=== PATIENT | male | born 1965 | race Caucasian/White ===

== ENCOUNTER 2018-07-20 09:16 | Emergency (ER) | payer BC ==
[2018-07-20] MEDS ORDERED: ASPIRIN 81 MG TABLET, CHEWABLE PO ONE (11:35)
--- NOTE | 2018-07-20 11:37 | ER Document Report ---
ED Medical Screen (RME) - General Chief Complaint: Chest Pain Stated Complaint: CHEST PAIN Time Seen by Provider: 07/20/18 11:28 Mode of Arrival: Ambulatory Information source: Patient Notes: 53-year-old male presents emergency department complaints of left-sided chest tightness that started around 8 AM. Patient was lifting concrete when it started. He states that he is having some associated shortness of breath. He is an albuterol inhaler without relief his symptoms. He states that over the last couple of hours he is becoming more anxious and having recurrent episodes of the chest tightness. He states that he has been having this similar symptoms for the last 4 months. 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 He states that he had this completed last week but does not know the results. He has a stress test scheduled on 07/27 and an echo scheduled on 08/14. Patient denies any hypertension, hyperlipidemia, coronary artery disease, smoking, diabetes. He states that he does have a family history of coronary artery disease. I have greeted and performed a rapid initial assessment of this patient. A comprehensive ED assessment and evaluation of the patient, analysis of test results and completion of the medical decision making process will be conducted by additional ED providers. PHYSICAL EXAMINATION: GENERAL: Well-appearing, well-nourished and in no acute distress. HEAD: Atraumatic, normocephalic. EYES: Pupils equal round extraocular movements intact, conjunctiva are normal. ENT: Nares patent NECK: Normal range of motion LUNGS: No respiratory distress Musculoskeletal: Normal range of motion NEUROLOGICAL: Normal speech, normal gait. PSYCH: Normal mood, normal affect. SKIN: Warm, Dry, normal turgor, no rashes or lesions noted. TRAVEL OUTSIDE OF THE [place] IN LAST 30 DAYS: No - Related Data Allergies/Adverse Reactions: iodine [Iodine] Allergy (Intermediate, Verified 07/20/18 09:17) Past Medical History - Past Medical History Cardiac Medical History: Reports: Hx Coronary Artery Disease, Hx Hypercholesterolemia Denies: Hx Heart Attack, Hx Hypertension Pulmonary Medical History: Denies: Hx Asthma - POSSIBLE, Hx Bronchitis, Hx COPD, Hx Pneumonia Neurological Medical History: Reports: Hx Seizures - 13 YRS AND NONE SINCE. Denies: Hx Cerebrovascular Accident Renal/ Medical History: Reports: Hx Kidney Stones Musculoskeltal Medical History: Denies Hx Arthritis - Immunizations Hx Diphtheria, Pertussis, Tetanus Vaccination: No Physical Exam - Vital signs Vitals: Temp Pulse Resp BP Pulse Ox 97.7 F 58 L 16 139/78 H 99 07/20/18 09:26 07/20/18 09:26 07/20/18 09:26 07/20/18 09:26 07/20/18 09:26 Course - Vital Signs Vital signs: Temp Pulse Resp BP Pulse Ox 97.7 F 58 L 16 139/78 H 99 07/20/18 09:26 07/20/18 09:26 07/20/18 09:26 07/20/18 09:26 07/20/18 09:26
[2018-07-20 12:22] LABS: ABSOLUTE EOSINOPHILS # (AUTO) 0.1 10^3/uL (0.0-0.6); ABSOLUTE LYMPHOCYTES (AUTO) 1.8 10^3/uL (0.5-4.7); ABSOLUTE MONOCYTES (AUTO) 0.4 10^3/uL (0.1-1.4); BASOPHILS % (AUTO) 0.4 % (0-2); EOSINOPHILS % (AUTO) 1.6 % (0-6); HEMATOCRIT 43.3 % (37.9-51.0); HEMOGLOBIN 15.1 g/dL (13.5-17.0); LYMPHOCYTES % (AUTO) 29.1 % (13-45); MEAN CORPUSCULAR HGB CONC 34.8 g/dL (32.0-36.0); MEAN CORPUSCULAR VOLUME 92 fl (80-97); MONOCYTES % (AUTO) 6.7 % (3-13); PLATELET COUNT 219 10^3/uL (150-450); RED BLOOD COUNT 4.72 10^6/uL (4.35-5.55); RED CELL DISTRIBUTION WIDTH 12.6 % (11.5-14.0); SEGMENTED NEUTROPHILS % (AUTO) 62.2 % (42-78); TOTAL CELLS COUNTED % (AUTO) 100 %; WHITE BLOOD COUNT 6.4 10^3/uL (4.0-10.5)
--- NOTE | 2018-07-20 12:39 | RADIOLOGY REPORT (SQ) ---
EXAM DESCRIPTION: CHEST SINGLE VIEW COMPLETED DATE/TIME: 07/20/2018 12:14 pm REASON FOR STUDY: chest pressure COMPARISON: None. EXAM PARAMETERS: NUMBER OF VIEWS: One view. TECHNIQUE: Single frontal radiographic view of the chest acquired. RADIATION DOSE: NA LIMITATIONS: None. FINDINGS: LUNGS AND PLEURA: No opacities, masses or pneumothorax. No pleural effusion. MEDIASTINUM AND HILAR STRUCTURES: No masses. Contour normal. HEART AND VASCULAR STRUCTURES: Heart normal in size. Normal vasculature. BONES: No acute findings. HARDWARE: None in the chest. OTHER: No other significant finding. IMPRESSION: 1. NO ACUTE RADIOGRAPHIC FINDING IN THE CHEST. TECHNICAL DOCUMENTATION: JOB ID: [id number] [employer]- All Rights Reserved Reading location - IP/workstation name: [email or web address]
[2018-07-20 12:46] LABS: ALANINE AMINOTRANSFERASE 17 U/L (21-72); ALBUMIN 4.7 g/dL (3.5-5.0); ALKALINE PHOSPHATASE 58 U/L (38-126); ANION GAP 8 (5-19); ASPARTATE AMINO TRANSFERASE 42 U/L (17-59); BILIRUBIN,DIRECT 0.3 mg/dL (0.0-0.4); BILIRUBIN,TOTAL 0.8 mg/dL (0.2-1.3); BLOOD UREA NITROGEN 14 mg/dL (7-20); CARBON DIOXIDE 30 mmol/L (22-30); CHLORIDE 105 mmol/L (98-107); GLUCOSE 98 mg/dL (75-110); POTASSIUM 4.6 mmol/L (3.6-5.0); SODIUM 142.5 mmol/L (137-145); TOTAL PROTEIN 7.7 g/dL (6.3-8.2)
--- NOTE | 2018-07-20 14:00 | EKG REPORT ---
SEVERITY:- NORMAL ECG - SINUS RHYTHM : Confirmed by: Stan Nava 20-Jul-2018 13:59:51
--- NOTE | 2018-07-20 19:47 | ER Document Report ---
ED General - General Chief Complaint: Chest Pain Stated Complaint: CHEST PAIN Time Seen by Provider: 07/20/18 11:28 Primary Care Provider: JAKOB ART MD [Primary Care Provider] - Follow up tomorrow Mode of Arrival: Ambulatory Notes: Patient is a 53-year-old male without chronic medical problems, former smoker, presents complaining of chest pain. Patient states that he was at work, went from a sitting to standing position and became somewhat. States lightheadedness did not resolve. He got in his truck with a friend to drive home. States that during the drive he began to develop some pressure-like sensation over his left chest. States he elected to come to the hospital since that time. He notes that that pain did spontaneously resolve approximately 8-10 hours ago and has not recurred since that time. Nothing seemed to improve or worsen his symptoms when present. The patient has a history of similar symptoms multiple times within the past 3 months. He has established care with cardiology due to these concerns. He had a treadmill stress test approximately 1 week ago that he reports showed abnormal rhythms but did not show any evidence of reversible ischemia. He is scheduled for a nuclear stress test next week. He denies any current symptoms at the time of my assessment. TRAVEL OUTSIDE OF THE [place] IN LAST 30 DAYS: No - Related Data Allergies/Adverse Reactions: iodine [Iodine] Allergy (Intermediate, Verified 07/20/18 09:17) Past Medical History - General Information source: Patient - Social History Smoking Status: Former Smoker Chew tobacco use (# tins/day): Yes - 1 can a week Frequency of alcohol use: 6 packs a year Drug Abuse: Marijuana Lives with: Spouse/Significant other Family History: Reviewed & Not Pertinent Patient has suicidal ideation: No Patient has homicidal ideation: No - Past Medical History Cardiac Medical History: Reports: Hx Coronary Artery Disease, Hx Hypercholesterolemia Denies: Hx Heart Attack, Hx Hypertension Pulmonary Medical History: Denies: Hx Asthma - POSSIBLE, Hx Bronchitis, Hx COPD, Hx Pneumonia Neurological Medical History: Reports: Hx Seizures - 13 YRS AND NONE SINCE. Denies: Hx Cerebrovascular Accident Endocrine Medical History: Reports: Hx Diabetes Mellitus Type 2 - borderline Renal/ Medical History: Reports: Hx Kidney Stones. Denies: Hx Peritoneal Dialysis Musculoskeletal Medical History: Denies Hx Arthritis Past Surgical History: Reports: Hx Genitourinary Surgery - Immunizations Hx Diphtheria, Pertussis, Tetanus Vaccination: No Review of Systems - Review of Systems Notes: Constitutional: Negative for fever. HENT: Negative for sore throat. Eyes: Negative for visual changes. Cardiovascular: Positive for chest pain now resolved Respiratory: Negative for shortness of breath. Gastrointestinal: Negative for abdominal pain, vomiting or diarrhea. Genitourinary: Negative for dysuria. Musculoskeletal: Negative for back pain. Skin: Negative for rash. Neurological: Negative for headaches, weakness or numbness. 10 point ROS negative except as marked above and in HPI. Physical Exam - Vital signs Vitals: Temp Pulse Resp BP Pulse Ox 97.7 F 58 L 16 139/78 H 99 07/20/18 09:26 07/20/18 09:26 07/20/18 09:26 07/20/18 09:26 07/20/18 09:26 Interpretation: Bradycardic Notes: PHYSICAL EXAMINATION: GENERAL: Well-appearing, well-nourished and in no acute distress. HEAD: Atraumatic, normocephalic. EYES: Pupils equal round and reactive to light, extraocular movements intact, sclera anicteric, conjunctiva are normal. ENT: nares patent, oropharynx clear without exudates. Moist mucous membranes. NECK: Normal range of motion, supple without lymphadenopathy LUNGS: Breath sounds clear to auscultation bilaterally and equal. No wheezes rales or rhonchi. HEART: Regular rate and rhythm without murmurs ABDOMEN: Soft, nontender, normoactive bowel sounds. No guarding, no rebound. No masses appreciated. EXTREMITIES: Normal range of motion, no pitting or edema. No cyanosis. NEUROLOGICAL: No focal neurological deficits. Moves all extremities spontaneously and on command. PSYCH: Normal mood, normal affect. SKIN: Warm, Dry, normal turgor, no rashes or lesions noted. Course - Re-evaluation Re-evalutation: 07/20/18 19:45 Presentation of chest pain in an otherwise well appearing patient. Low clinical suspicion for ACS given clinical history, exam, EKG without ST elevations or depressions, and negative initial troponin. HEART score less than or equal to 3. PE also seems unlikely given clinical history, absence of tachycardia or dyspnea. Wells score 0. CXR without evidence of pneumothorax or pneumonia. No widened mediastinum. Aortic dissection also seems unlikely given history, symmetric pulses, CXR, and vitals. Repeat troponin remains normal 4 hours after initial. The patient actually has a scheduled cardiac stress test next week and I think this is an appropriate timeframe in which complete the study. Overall assessment: Chest pain in a patient without evidence of cardiac or other serious etiology on workup today. I discussed with patient that, based on their age, risk factors and emergency department testing today, the likelihood that their symptoms are related to a heart attack is very low (estimated risk of heart attack or over the next 30 days of less than 1%). The patient demonstrates decision making capacity and has verbalized an understanding of these risks to me. Based on this, the patient has chosen to follow-up as an outpatient. Usual chest pain return precautions reviewed. The patient states understanding and agreement with this plan. - Vital Signs Vital signs: Temp Pulse Resp BP Pulse Ox 97.7 F 58 L 20 131/74 H 97 07/20/18 09:26 07/20/18 09:26 07/20/18 20:01 07/20/18 20:01 07/20/18 20:01 - Laboratory Result Diagrams: 07/20/18 12:00 07/20/18 12:00 Laboratory results interpreted by me: 07/20/18 12:00 ALT 17 L - Diagnostic Test Radiology reviewed: Image reviewed, Reports reviewed Radiology results interpreted by me: 07/20/18 19:46 Chest x-ray: No acute infiltrate or pneumothorax - EKG Interpretation by Me Additional EKG results interpreted by me: 07/20/18 19:46 Sinus rhythm, rate 62. No ST elevations or depressions. QTC is 419. Discharge - Discharge Clinical Impression: Lightheadedness Chest pain Qualifiers: Chest pain type: unspecified Qualified Code(s): R07.9 - Chest pain, unspecified Condition: Good Disposition: HOME, SELF-CARE Additional Instructions: You were seen today for chest pain. The exact cause of your pain is unclear. However, based on your cardiac enzyme testing, chest x-ray, and EKG it does not appear that it is from an immediately life-threatening cause at this time. Although your testing here is normal is critical that you follow-up with your primary care physician for continued evaluation of this chest pain and possible stress testing. I recommended you see your physician within the next 24-48 hours to be evaluated for consideration of a stress test. Please return to emergency department immediately if you have worsening of your chest pain, shortness of breath, vomiting, become unable to exert yourself due to pain or difficulty breathing, you pass out, or have any pain that radiates into your arms, jaw, or back. Please also return if you have any additional symptoms that are concerning to you. Forms: Return to Work Referrals: JAKOB ART MD [Primary Care Provider] - Follow up tomorrow
[2018-07-20 20:07] VITALS: BP 131/74
== END 2018-07-20 20:30 | disposition home or self-care (01) ==
LOC: ER 09:16
DX: R07.89 Other chest pain (principal); R42 Dizziness and giddiness; I25.10 Atherosclerotic heart disease of native coronary artery without angina pectoris; E11.9 Type 2 diabetes mellitus without complications; F12.10 Cannabis abuse, uncomplicated; Z72.0 Tobacco use
CPT/HCPCS: 36415; 71045; 80053; 84484; 85025; 93005; 93010; 99284

== ENCOUNTER → 2018-10-10 | Outpatient (CLI) | payer BC ==
[2018-10-10 17:06] LABS: ALANINE AMINOTRANSFERASE 29 U/L (21-72); ALBUMIN 4.4 g/dL (3.5-5.0); ALKALINE PHOSPHATASE 58 U/L (38-126); ASPARTATE AMINO TRANSFERASE 28 U/L (17-59); BILIRUBIN,DIRECT 0.1 mg/dL (0.0-0.4); BILIRUBIN,TOTAL 0.9 mg/dL (0.2-1.3); CHOLESTEROL 140.83 mg/dL (0-200); TOTAL PROTEIN 7.2 g/dL (6.3-8.2); TRIGLYCERIDES 105 mg/dL (<150)
[2018-10-10 17:17] LABS: DIRECT LDL 70 mg/dL (<100)
== END ==
LOC: LAB 16:27
PROVIDERS: ATTEND Internal Medicine Cardiovascular Disease
DX: E78.5 Hyperlipidemia, unspecified (principal); Z79.899 Other long term (current) drug therapy
CPT/HCPCS: 36415; 80061; 80076

== ENCOUNTER → 2018-10-23 | Outpatient (CLI) | payer BC ==
--- NOTE | 2018-10-23 12:57 | RADIOLOGY REPORT (SQ) ---
EXAM DESCRIPTION: CAROTID DOPPLER COMPLETED DATE/TIME: 10/23/2018 11:20 am REASON FOR STUDY: BRUIT R09.89 R09.89 OTH SYMPTOMS AND SIGNS INVOLVING THE CIRC AND RESP SY COMPARISON: None. TECHNIQUE: Grayscale ultrasound, Doppler velocity and spectra, and color Doppler images acquired of the extra-cranial carotid and vertebral arteries. Images stored on PACS. LIMITATIONS: None. FINDINGS: RIGHT CAROTID CCA Velocities: Within normal limits. ICA Velocities Peak systolic 105 cm/s. End diastolic 41 cm/s. Proximal ICA/CCA peak systolic ratio 1.5. Spectra normal. No significant plaque. LEFT CAROTID CCA Velocities: Within normal limits. ICA Velocities Peak systolic 105 cm/s. End diastolic 49 cm/s. Proximal ICA/CCA peak systolic ratio 1.2. Spectra normal. No significant plaque. VERTEBRAL ARTERIES: Antegrade flow. Normal waveforms. SUBCLAVIAN ARTERIES: No finding. OTHER: No other significant finding. IMPRESSION: NO HEMODYNAMICALLY SIGNIFICANT STENOSIS. COMMENT: Quality ID #[id number]: Velocity criteria are extrapolated from the diameter data as defined by t he Society of Radiologists in Ultrasound Consensus Conference. Radiology 2003: 229; 340-346. TECHNICAL DOCUMENTATION: JOB ID: [id number] [employer]- All Rights Reserved Reading location - IP/workstation name: [email or web address]
== END ==
LOC: SP 10:26
PROVIDERS: ATTEND Internal Medicine Cardiovascular Disease
DX: R09.89 Other specified symptoms and signs involving the circulatory and respiratory systems (principal)
CPT/HCPCS: 93880

== ENCOUNTER → 2018-12-04 | Outpatient (CLI) | payer BC ==
[2018-12-04 08:49] LABS: ALANINE AMINOTRANSFERASE 24 U/L (21-72); ALBUMIN 4.2 g/dL (3.5-5.0); ALKALINE PHOSPHATASE 59 U/L (38-126); ASPARTATE AMINO TRANSFERASE 28 U/L (17-59); BILIRUBIN,DIRECT 0.2 mg/dL (0.0-0.4); BILIRUBIN,TOTAL 0.7 mg/dL (0.2-1.3); CHOLESTEROL 238.36 mg/dL (0-200); TOTAL PROTEIN 6.6 g/dL (6.3-8.2); TRIGLYCERIDES 269 mg/dL (<150)
[2018-12-04 09:00] LABS: DIRECT LDL 142 mg/dL (<100)
[2018-12-04 09:05] LABS: VLDL CHOLESTEROL 53.8 mg/dL (10-31)
== END ==
LOC: LAB 08:13
PROVIDERS: ATTEND Internal Medicine Cardiovascular Disease
DX: E78.5 Hyperlipidemia, unspecified (principal); Z79.899 Other long term (current) drug therapy
CPT/HCPCS: 36415; 80061; 80076

== ENCOUNTER → 2019-01-15 | Outpatient (CLI) | payer BC ==
[2019-01-15 09:30] LABS: ALBUMIN 4.2 g/dL (3.5-5.0); ALKALINE PHOSPHATASE 59 U/L (38-126); ASPARTATE AMINO TRANSFERASE 26 U/L (17-59); BILIRUBIN,DIRECT 0.2 mg/dL (0.0-0.4); BILIRUBIN,TOTAL 0.8 mg/dL (0.2-1.3); CHOLESTEROL 148.83 mg/dL (0-200); TOTAL PROTEIN 6.8 g/dL (6.3-8.2); TRIGLYCERIDES 111 mg/dL (<150)
[2019-01-15 09:41] LABS: DIRECT LDL 101 mg/dL (<100)
== END ==
LOC: LAB 08:43
PROVIDERS: ATTEND Internal Medicine Cardiovascular Disease
DX: E78.5 Hyperlipidemia, unspecified (principal); Z79.899 Other long term (current) drug therapy
CPT/HCPCS: 36415; 80061; 80076

== ENCOUNTER → 2019-05-05 | Outpatient (CLI) | payer BC ==
[2019-05-05 08:26] LABS: ALBUMIN 4.1 g/dL (3.5-5.0); ALKALINE PHOSPHATASE 58 U/L (38-126); ANION GAP 6 (5-19); ASPARTATE AMINO TRANSFERASE 25 U/L (17-59); BILIRUBIN,DIRECT 0.1 mg/dL (0.0-0.4); BILIRUBIN,TOTAL 0.8 mg/dL (0.2-1.3); BLOOD UREA NITROGEN 15 mg/dL (7-20); CALCIUM 9.3 mg/dL (8.4-10.2); CARBON DIOXIDE 28 mmol/L (22-30); CHLORIDE 108 mmol/L (98-107); CHOLESTEROL 244.29 mg/dL (0-200); GLUCOSE 108 mg/dL (75-110); POTASSIUM 4.6 mmol/L (3.6-5.0); TRIGLYCERIDES 172 mg/dL (<150)
[2019-05-05 08:38] LABS: DIRECT LDL 160 mg/dL (<100)
[2019-05-05 08:45] LABS: VLDL CHOLESTEROL 34.4 mg/dL (10-31)
== END ==
LOC: LAB 07:51
PROVIDERS: ATTEND Physician Assistant
DX: E78.5 Hyperlipidemia, unspecified (principal); R00.2 Palpitations; Z79.899 Other long term (current) drug therapy
CPT/HCPCS: 36415; 80048; 80061; 80076

== ENCOUNTER → 2019-11-29 | Outpatient (CLI) | payer BC ==
[2019-11-29 09:31] LABS: ALBUMIN 4.5 g/dL (3.5-5.0); ALKALINE PHOSPHATASE 64 U/L (38-126); ASPARTATE AMINO TRANSFERASE 24 U/L (17-59); BILIRUBIN,TOTAL 0.8 mg/dL (0.2-1.3); TRIGLYCERIDES 83 mg/dL (<150)
[2019-11-29 09:42] LABS: DIRECT LDL 90 mg/dL (<100)
== END ==
LOC: OD 07:34
PROVIDERS: ATTEND Physician Assistant
DX: E78.5 Hyperlipidemia, unspecified (principal); Z79.899 Other long term (current) drug therapy
CPT/HCPCS: 36415; 80061; 80076

== ENCOUNTER → 2020-01-24 | Outpatient (CLI) | payer BC ==
[2020-01-24 08:07] LABS: ALBUMIN 4.3 g/dL (3.5-5.0); ALKALINE PHOSPHATASE 58 U/L (38-126); ASPARTATE AMINO TRANSFERASE 34 U/L (17-59); BILIRUBIN,TOTAL 0.9 mg/dL (0.2-1.3); CHOLESTEROL 123.85 mg/dL (0-200); TOTAL PROTEIN 7.1 g/dL (6.3-8.2); TRIGLYCERIDES 80 mg/dL (<150)
[2020-01-24 08:18] LABS: DIRECT LDL 64 mg/dL (<100)
== END ==
LOC: OD 07:12
PROVIDERS: ATTEND Physician Assistant
DX: E78.5 Hyperlipidemia, unspecified (principal); Z79.899 Other long term (current) drug therapy
CPT/HCPCS: 36415; 80061; 80076

== ENCOUNTER → 2020-04-24 | Outpatient (CLI) | payer OTHER ==
[2020-04-24 09:15] LABS: ALBUMIN 4.6 g/dL (3.5-5.0); ALKALINE PHOSPHATASE 61 U/L (38-126); ANION GAP 8 (5-19); ASPARTATE AMINO TRANSFERASE 29 U/L (17-59); BILIRUBIN,DIRECT 0.1 mg/dL (0.0-0.4); BLOOD UREA NITROGEN 15 mg/dL (7-20); CALCIUM 9.5 mg/dL (8.4-10.2); CARBON DIOXIDE 28 mmol/L (22-30); CHLORIDE 105 mmol/L (98-107); CHOLESTEROL 145.84 mg/dL (0-200); GLUCOSE 111 mg/dL (75-110); POTASSIUM 4.9 mmol/L (3.6-5.0); TOTAL PROTEIN 7.4 g/dL (6.3-8.2); TRIGLYCERIDES 73 mg/dL (<150)
[2020-04-24 09:26] LABS: DIRECT LDL 80 mg/dL (<100)
--- OUTSIDE RECORDS SUMMARY | 2020-04-27 08:54 | XMS REPORT ---
:1965 Author Organization [facility] Address [facility] [address] [place] [address] Care Team Providers Name Role Phone YOSEPH MITCHELL Attending Clinician Unavailable Dennis Hill Attending Clinician Unavailable Allergies, Adverse Reactions, Alerts Allergy Allergy Status Severity Reaction(s) Onset Inactive Treating C omments Name Type Date Date Clinician Iodine Allergy to Active Hives substance Medications Ordered Filled Start Stop Current Ordering Indication Dosage Frequency Signature Comments Components Medication Medication Date Date Medication? Clinician (SIG) Name Name Tamsulosin 2018- No Yoseph .4 Once Per Hcl 12-18 Jennifer Md (Flomax*) 00:00: 00:00 0.4 Mg 00 :00 Cap.er.24h Oxycodone/A 2018- No Yoseph 1 Every 6 cetaminophe 12-18 Jennifer Hightower Hours as n (Percocet 00:00: 00:00 needed for 5/325 Mg*) 00 :00 Pain 5 Mg/325 Mg Tab No Home Yes Medications 1 Ea Ea cetirizine No cetirizine 10 mg 10 mg capsule capsule Take by Take by oral route. oral route. Flovent 110 No 2puff(s BID Flovent mcg/actuati ) 110 on aerosol mcg/actuat inhaler ion Inhale 2 aerosol puffs twice inhaler a day by Inhale 2 inhalation puffs route. twice a day by inhalation route. rosuvastati No 1 Q1D rosuvastat n 20 mg in 20 mg tablet Take tablet 1 tablet Take 1 every day tablet by oral every day route. by oral route. Problems Condition Condition Condition Status Onset Resolution Last Treatin g Comments Name Details Category Date Date Treatment Clinician Date Hypercholes Hypercholes Problem Active terolemia terolemia 7 00:00: 00 Dyspnea Dyspnea Problem Active 12-19 00:00: 00 Kidney Problem Resolve stone on d 7-09 left side 10:31: 00 Kidney Problem Resolve stone on d 709 right side 10:31: 00 Lower Problem Resolve abdominal d 09 pain 10:31: 00 Kidney Kidney Problem Active stone Stone 12-18 00:00: 00 Procedures Procedure Date / Time Performed Performing Clinician Navid anderson OFFICE/OUTPATIENT VISIT EST 2018-05-30 14:45:00 OFFICE/OUTPATIENT VISIT EST 2018-05-28 08:00:00 OFFICE/OUTPATIENT VISIT EST 2017-08-03 14:15:00 Colonoscopy 2016-06-12 00:00:00 Removal of Sebaceous Cyst Stone Extraction Hernia Repair Results Test Description Test Time Test Comments Text Results Atomic Results Result Comments CAT 2018-12-18 [facility] SCAN 10:02:00 [address] [facility] [id number] - Patient: ONEAL MENA : 1965 Sex: M Address: [address] [place] [address] [place], [place] [address] Unit #: [id number] REQ SEQ #: [id number] Location: ED Room #: Ordering: YOSEPH MITCHELL MD Diagnosis: FLANK PAIN - CT ABD PELV WO (NO ORAL OR IV) Clinical Information: Left lower abdominal pain, stone versus diverticulitis. Comparison: N one TECHNIQUE: Transaxial CT scanning was performed from the lung bases to pubic symphysis without contrast, renal stone protocol. Lack of intravenous contrast limits sensitivity for detection of pathology. Coronal and sagittal reformatted images were acquired. FINDINGS: Th e visualized lung bases are clear. No pleural effusions or pericardial effusion. Liver, spleen, gallbladder, pancreas, and adrenal glands are unremarkable. 15 x 7 x 9 mm calculus in the proximal left ureter causing moderate to severe left hydronephrosis. This calculus in the proximal left ureter measures 1580 - 1650 Hounsfield units. 1.8 cm and 1.5 cm staghorn calculi in the lower pole left kidney as well as a few sub-5 mm calculi in the lower pole left kidney . 3 mm calculus in the distal right ureter at the ureteral crossing of the iliac vessels (s eries 2 image 59) which measures about 530 Hounsfield units. Moderate right hydronephrosis a nd right hydroureter. There are no additional ureteric calculi identified. 4 mm calculus in the lower pole of the right kidney. Nondistended urinary bladder unremarkable. Mild prostate ca lcifications. Incidental small phleboliths in the pelvis. No intra-abdominal free air, free f luid or abnormal fluid collections are seen. Mild atherosclerotic calcifications. No abdominal a neurysm. There is no evidence retroperitoneal hemorrhage, mass, or adenopathy. There is no evid ence of bowel obstruction or bowel inflammatory changes. Normal appearing appendix visualized. No focal colonic abnormality identified. No evidence for diverticulitis. Surgical clip in the upper portion of the left anterior pelvis. Minimal lower lumbar spondylosis. Sub centimeter sclerotic focus right femoral neck consistent with small benign bone island. No suspi cious bone lesions. IMPRESSION: 1. Large calculus in the proximal left ureter causing m oderate to severe left hydronephrosis. 2. 3 mm calculus in distal right ureter at the level of the ureteral crossing of iliac vessels. Moderate right hydronephrosis and hydroureter. 3 . Lower pole staghorn calculi left kidney. 4. 4 mm calyceal calculus lower pole right kidney. Final report electronically signed by: Navin Price DO Signed by: ELVA PRICE DO 12/18/18 0942 cc: ELVA PRICE DOUGLAS MD Carbon Dioxide Level 2018-12-18 07:47:00 Test Item Value Reference Range Comments Carbon dioxide blood (test code = 11147805) 25 22-2 9 Glucose Zfwic7546-21-97 07:47:00 Test Item Value Reference Range Comments Glucose blood (test code = 86119032) 135 70-105 Blood Urea Qzzrejbb3675-64-19 07:47:00 Test Item Value Reference Range Comments BUN (test code = 253169717) 15.0 8.4-25.7 Wjfadqvmth8877-48-63 07:47:00 Test Item Value Reference Range Comments Creatinine blood (test code = 413654004) 1.31 0.72-1. 25 Estimated Creatinine Clearance Dwhf1019-94-46 07:47:00 Test Item Value Reference Range Comments Estimation of creatinine 68.11 PT Ht: 177.8cm, PT Wt: 80.1KG clearance (test code = 212526931) Anion Tkg3061-59-01 07:47:00 Test Item Value Reference Range Comments Anion gap measurement (test code = 38282921) 14 7-1 6 Calcium Hiqfz2807-84-57 07:47:00 Test Item Value Reference Range Comments Calcium (test code = 92006096) 9.6 8.4-10.2 Total Wciibcaqm0165-07-48 07:47:00 Test Item Value Reference Range Comments Total bilirubin (test code = HKQ3751) 0.9 0.1-1.2 Total Bqrxrxx2178-55-90 07:47:00 Test Item Value Reference Range Comments Total protein blood (test code = 2885-2) 7.6 6.0-8.3 Pbthuku4237-26-26 07:47:00 Test Item Value Reference Range Comments Albumin (test code = DRC9331) 4.4 3.2-5.2 Rxktoexi6147-36-07 07:47:00 Test Item Value Reference Range Comments Plasma globulin measurement (mass/volume) (test code = 3.2 2.6-4.6 85028-2) Albumin/Globulin Udbsx5052-14-39 07:47:00 Test Item Value Reference Range Comments Albumin to globulin ratio (test code = 855104) 1.4 1 .1-2.5 Aspartate Amino Transf (AST/SGOT)2018-12-18 07:47:00 Test Item Value Reference Range Comments AST (SGOT) ser/plas (test code = 23209564) 28 5-34 Alkaline Qeynydwmcwt1990-20-66 07:47:00 Test Item Value Reference Range Comments Alkaline phosphatase (test code = 32130707) 74 40-1 50 Alanine Aminotransferase (ALT/SGPT)2018-12-18 07:47:00 Test Item Value Reference Range Comments ALT (SGPT) ser/plas (test code = 1742-6) 35 0-55 Xttceh7422-68-38 07:47:00 Test Item Value Reference Range Comments Lipase ser/plas (test code = 3040-3) 55 7-78 Magnesium Jbpux8588-58-77 07:47:00 Test Item Value Reference Range Comments Magnesium blood (test code = 409458261) 2.0 1.6-2.6 White Blood Qlzgh8627-34-72 07:47:00 Test Item Value Reference Range Comments Blood leukocytes automated count (number/volume) (test 12.4 3.6-11.1 code = 6690-2) Red Blood Fsydy0459-96-91 07:47:00 Test Item Value Reference Range Comments Blood erythrocytes automated count (number/volume) 4.88 4.27-5.49 (test code = 789-8) Apmleyayqx4436-37-65 07:47:00 Test Item Value Reference Range Comments Blood hemoglobin measurement (mass/volume) (test code 15.5 12.9-16.1 = 718-7) Tqvgwhvpdd5727-18-83 07:47:00 Test Item Value Reference Range Comments Automated blood hematocrit (volume fraction) (test 44.9 37.7-46.5 code = 4544-3) Mean Corpuscular Gwoplo8142-20-54 07:47:00 Test Item Value Reference Range Comments Automated erythrocyte mean corpuscular volume (test 92.1 79.3-94.8 code = 787-2) Mean Corpuscular Hnmgtgtymq8052-60-48 07:47:00 Test Item Value Reference Range Comments Automated erythrocyte mean corpuscular hemoglobin 31.7 26.8-33.2 (mass per erythrocyte) (test code = 785-6) Mean Corpuscular Hemoglobin Hatlfro7189-91-70 07:47:00 Test Item Value Reference Range Comments Automated erythrocyte mean corpuscular hemoglobin 34.4 33.5-35.5 concentration measurement (mass/volume) (test code = 786-4) Red Cell Distribution Bugig9922-90-18 07:47:00 Test Item Value Reference Range Comments Automated erythrocyte distribution width ratio (test 12.4 12.0-15.1 code = 788-0) Platelet Gfpuu1291-07-35 07:47:00 Test Item Value Reference Range Comments Automated blood platelet count (count/volume) (test 175 165-353 code = 777-3) Mean Platelet Gvsdkb4274-72-66 07:47:00 Test Item Value Reference Range Comments Automated blood platelet mean volume measurement (test 7.3 7.5-10.6 code = 69386-3) Neutrophils (%) (Auto)2018-12-18 07:47:00 Test Item Value Reference Range Comments Automated blood neutrophil count as percentage of 90.4 43.2-71.5 total leukocytes (test code = 770-8) Lymphocytes (%) (Auto)2018-12-18 07:47:00 Test Item Value Reference Range Comments Automated blood lymphocyte count as percentage of 6.2 16.8-43.4 total leukocytes (test code = 736-9) Monocytes (%) (Auto)2018-12-18 07:47:00 Test Item Value Reference Range Comments Automated blood monocyte count as percentage of total 2.9 4.6-12.4 leukocytes (test code = 5905-5) Eosinophils (%) (Auto)2018-12-18 07:47:00 Test Item Value Reference Range Comments Automated blood eosinophil count as percentage of 0.1 0.7-7.8 total leukocytes (test code = 713-8) Basophils (%) (Auto)2018-12-18 07:47:00 Test Item Value Reference Range Comments Automated blood basophil count as percentage of total 0.4 0.2-1.2 leukocytes (test code = 706-2) Neutrophils # (Auto)2018-12-18 07:47:00 Test Item Value Reference Range Comments Blood neutrophils automated count (number/volume) 11.2 1.9-7.2 (test code = 751-8) Lymphocytes # (Auto)2018-12-18 07:47:00 Test Item Value Reference Range Comments Automated blood lymphocyte count (number/volume) (test 0.8 1.1-2.7 code = 731-0) Monocytes # (Auto)2018-12-18 07:47:00 Test Item Value Reference Range Comments Blood monocytes automated count (number/volume) (test 0.4 0.3-0.8 code = 742-7) Eosinophils # (Auto)2018-12-18 07:47:00 Test Item Value Reference Range Comments Automated blood eosinophil count (test code = 711-2) 0.0 0.0-0.5 Basophils # (Auto)2018-12-18 07:47:00 Test Item Value Reference Range Comments Automated blood basophil count (count/volume) (test 0.0 0.0-0.1 code = 704-7) Prothrombin Xemw7786-31-06 07:47:00 Test Item Value Reference Range Comments Prothrombin time (PT) in platelet poor plasma by 12.6 10.8-14.2 coagulation assay (test code = 5902-2) Prothromb Time International Jdfpl3430-37-59 07:47:00 Test Item Value Reference Range Comments INR in Platelet poor plasma by 0.84 I NR Therapeutic Range: 2.0-3.0 Coagulation assay (test code = O ral Anticoagulant Therapy 6301-6) 2.5-3.5 Prosthet ic Heart Valves, Recurrent System ic Embolism Urine Tiodc5538-07-47 07:47:00 Test Item Value Reference Range Comments Color of Urine by Auto (test code = 74915-1) Yellow Urine Unsoogfuzr9613-25-56 07:47:00 Test Item Value Reference Range Comments Urine clarity by refractometry automated (test code = Clear 21713-9) Urine Specific Naygams3998-39-37 07:47:00 Test Item Value Reference Range Comments Urine specific gravity measurement by automated test 1.017 1.005-1.030 strip (relative density) (test code = 77186-3) Urine mI7647-19-45 07:47:00 Test Item Value Reference Range Comments Urine pH measurement by automated test strip (test 6.0 5.0-8.0 code = 62174-0) Urine Leukocyte Ntpscmls5072-01-04 07:47:00 Test Item Value Reference Range Comments Urine leukocyte esterase detection by automated NEGATIVE NEGATIVE test strip (test code = 98469-1) Urine Lhgjebh3577-26-46 07:47:00 Test Item Value Reference Range Comments Urine nitrite detection by automated test strip NEGATIVE NEGATIVE (test code = 74571-3) Urine Yhaenna8164-58-39 07:47:00 Test Item Value Reference Range Comments Urine protein detection by automated test strip NEGATIVE NEGATIVE (test code = 58759-8) Urine Glucose (UA)2018-12-18 07:47:00 Test Item Value Reference Range Comments Urine glucose detection by automated test strip NEGATIVE NEGATIVE (test code = 85781-2) Urine Plphsjz8293-15-13 07:47:00 Test Item Value Reference Range Comments Urine ketone detection by automated test strip (test 1+ NEGATIVE code = 04138-4) Urine Ebmfksspopwp8436-65-79 07:47:00 Test Item Value Reference Range Comments Urine urobilinogen measurement by automated test NEGATIVE NEGATIVE strip (mass/volume) (test code = 46422-6) Urine Yimijniuf3226-78-91 07:47:00 Test Item Value Reference Range Comments Urine bilirubin detection by automated test strip NEGATIVE NEGATIVE (test code = 56901-3) Urine Cmlbz9760-50-23 07:47:00 Test Item Value Reference Range Comments Urine erythrocytes detection by automated method (test 2+ NEGATIVE code = 81735-7) Urine Ascorbic Acid Rvhbr7772-61-80 07:47:00 Test Item Value Reference Range Comments Urine ascorbic acid detection (test code = 1904-2) NEGATIVE Urine Squamous Epithelial Uwoay0720-69-59 07:47:00 Test Item Value Reference Range Comments Urine squamous epithelial cells detection by automated 1-5 0-5 method (test code = 47058-1) Urine ZKI3875-71-85 07:47:00 Test Item Value Reference Range Comments RBC count ur auto (test code = 798-9) <20 0-2 Urine [id number] 07:47:00 Test Item Value Reference Range Comments Automated leukocytes count in urine sediment 0-5 0-5 (number/area) (test code = 16109-7) Urine Aqhgo7807-83-74 07:47:00 Test Item Value Reference Range Comments Urine mucus detection by automated method (test code = SMALL 31532-3) Sodium Ofqpz1951-32-03 07:47:00 Test Item Value Reference Range Comments Sodium blood (test code = 762281132) 142 137-144 Potassium Ozwmz8750-64-00 07:47:00 Test Item Value Reference Range Comments Potassium blood (test code = 813122855) 4.3 3.1-5.1 Chloride Ldugx4961-20-51 07:47:00 Test Item Value Reference Range Comments Chloride blood (test code = 623075762) 107 101-110 LIPID PANEL, XFJRQQYY9177-30-28 08:56:00 Test Item Value Reference Range Comments LDL-CHOLESTEROL (test code = 49996968) 115 mg/dL (calc) HDL CHOLESTEROL (test code = 50016456) 54 mg/dL >40 NON HDL CHOLESTEROL (test code = 78522808) 137 mg/dL (calc) <130 TRIGLYCERIDES (test code = 70416626) 108 mg/dL <150 CHOL/HDLC RATIO (test code = 44714063) 3.5 (calc) <5.0 CHOLESTEROL, TOTAL (test code = 98448038) 191 mg/dL <200 UUJ8291-00-76 08:56:001.08TROPONIN F1718-07-29 08:56:00<0.01T4, FREE 2018-05-28 08:56:001.2T3, IJFAZ6912-40-27 08:56:0090CREATINE KINASE, TOTAL 2018-05-28 08:56:70407Y1, VNOC8878-72-92 08:56:003.4TROPONIN H8066-48-84 08:56:00<0.01CBC (H/H, RBC, INDICES, WBC, PLT)2018-05-28 08:56:00 Test Item Value Reference Range Comments MPV (test code = 15458076) 9.2 fL 7.5-12.5 MCH (test code = 76418457) 31.7 pg 27.0-33.0 MCHC (test code = 77424303) 34.5 g/dL 32.0-36.0 WHITE BLOOD CELL COUNT (test code = 6.0 Thousand/uL 3.8-10.8 86336308) HEMATOCRIT (test code = 49836942) 43.5 % 38.5-50.0 RED BLOOD CELL COUNT (test code = 80515736) 4.73 Million/uL 4.20 -5.80 HEMOGLOBIN (test code = 19324393) 15.0 g/dL 13.2-17.1 PLATELET COUNT (test code = 55289242) 175 Thousand/uL 140-400 MCV (test code = 32679267) 92.0 fL 80.0-100.0 RDW (test code = 23868081) 12.1 % 11.0-15.0 HEMOGLOBIN A1c WITH mIO4630-49-24 08:56:00 Test Item Value Reference Range Comments eAG (mmol/L) (test code = 36804449) 6.3 (calc) HEMOGLOBIN A1c (test code = 51460557) 5.6 % of total Hgb <5.7 eAG (mg/dL) (test code = 51352501) 114 (calc) TEST [id number] 08:56:00 Test Item Value Reference Range Comments CLIENT CONTACT: (test code = 58073886) SELMA MADRID TEST NAME: (test code = 58311864) TSH 72714806 (test code = 93031058) See Below TEST CODE: (test code = 72671110) 320MVI4 T4 (THYROXINE), IQHFA9445-94-37 08:56:008.2COMPREHENSIVE METABOLIC PANEL 2018-05-28 08:56:00 Test Item Value Reference Range Comments BUN/CREATININE RATIO (test code = NOT APPLICABLE (calc) 12-0100) CREATININE (test code = 94684309) 1.05 mg/dL 0.70-1.33 GLUCOSE (test code = 16814793) 103 mg/dL 65-99 eGFR NON-AFR. RWANDAN (test code = 81 mL/min/1.73m2 > OR = 60 11350315) ALBUMIN (test code = 37418618) 4.3 g/dL 3.6-5.1 BILIRUBIN, TOTAL (test code = 1.1 mg/dL 0.2-1.2 23038011) eGFR (test code = 94 mL/min/1.73m2 > OR = 60 26749142) GLOBULIN (test code = 56953112) 2.5 g/dL (calc) 1.9-3.7 ALKALINE PHOSPHATASE (test code = 47 U/L 40-115 26476895) UREA NITROGEN (BUN) (test code = 10 mg/dL 7-25 96161467) CHLORIDE (test code = 21348215) 106 mmol/L 98-110 AST (test code = 40298158) 16 U/L 10-35 CARBON DIOXIDE (test code = 11368939) 30 mmol/L 20-32 CALCIUM (test code = 67597265) 9.4 mg/dL 8.6-10.3 PROTEIN, TOTAL (test code = 82829142) 6.8 g/dL 6.1-8.1 ALBUMIN/GLOBULIN RATIO (test code = 1.7 (calc) 1.0-2.5 97228806) POTASSIUM (test code = 80005608) 4.4 mmol/L 3.5-5.3 SODIUM (test code = 93606492) 140 mmol/L 135-146 ALT (test code = 08340797) 12 U/L 9-46 CBC NO Diff (Complete Blood Count)2017-08-03 00:00:00 Test Item Value Reference Range Comments Hemoglobin (test code = 806079) 14.7 g/dL 13.2-17.1 WBC (test code = 418809) 9.0 K/uL 3.8-10.8 MCHC (test code = 829557) 34.3 g/dL 32.0-36.0 Hematocrit (test code = 988352) 42.8 % 38.5-50.0 MCH (test code = 453421) 31.3 pg 27.0-33.0 RBC (test code = 546198) 4.69 MIL/uL 4.20-5.80 Platelet Count (test code = 973600) 194 K/uL 140-400 RDW (test code = 271462) 13.5 % 11.0-15.0 MCV (test code = 111601) 91.3 fL 80.0-100.0 MPV (test code = 906055) 9.7 fL 7.5-12.5 Testosterone, Total, Males(Adult)[id number] 00:00:00 Test Item Value Reference Range Comments Testosterone, Tot (Males), IA (test code = 955898) 426 ng/dL 250-827 CMP with Estimated [id number] 00:00:00 Test Item Value Reference Range Comments Alkaline Phosphatase (test code = 916736) 55 U/L 40-115 Bilirubin, Total (test code = 205542) 1.2 mg/dL 0.2-1.2 ALT/SGPT (test code = 592769) 11 U/L 9-46 Potassium (test code = 966346) 4.2 mmol/L 3.5-5.3 AST/SGOT (test code = 588905) 16 U/L 10-35 Calcium (test code = 764763) 9.1 mg/dL 8.6-10.3 Albumin (test code = 637757) 4.3 g/dL 3.6-5.1 Sodium (test code = 577829) 140 mmol/L 135-146 Creatinine (test code = 722123) 1.33 mg/dL 0.70-1.33 Chloride (test code = 936168) 106 mmol/L 98-110 CO2 (test code = 634167) 23 mmol/L 20-31 Est GFR, NonAfrican Gabonese (test code = 893659) 61 mL/min >=60 Est GFR, (test code = 794674) 71 mL/min > =60 Total Protein (test code = 315653) 6.8 g/dL 6.1-8.1 BUN (test code = 478025) 17 mg/dL 7-25 Glucose (test code = 931171) 84 mg/dL 65-99 [id number] 00:00:00 Test Item Value Reference Range Comments TSH (test code = 417104) 0.33 mIU/L 0.40-4.50 Hemoglobin A1c with [id number] 00:00:00 Test Item Value Reference Range Comments eAG (calc) (test code = 217361) 105 mg/dL Hemoglobin A1C (test code = 852608) 5.3 % <5.7 Lipid [id number] 00:00:00 Test Item Value Reference Range Comments Cholesterol (test code = 831101) 212 mg/dL <200 Total Chol/HDL Ratio (test code = 710598) 4.7 Ratio <5.0 Triglycerides (test code = 285329) 156 mg/dL <150 LDL Cholesterol (Calc) (test code = 212719) 136 mg/dL <100 HDL Cholesterol (test code = 235862) 45 mg/dL >40 VLDL Cholesterol (Calc) (test code = 036965) 31 mg/dL <30 PSA, [id number] 00:00:00 Test Item Value Reference Range Comments PSA, Total (test code = 574176) 1.1 ng/mL <=4.0 Rapid Strep\S\2017-03-15 14:15:00 Test Item Value Reference Range Comments Rapid Strep (test code = RAPIDSTREP) neg N/A Rapid Strep\S\2016-08-02 09:45:00 Test Item Value Reference Range Comments Rapid Strep (test code = RAPIDSTREP) positive N/A CBC with [id number] 00:01:00 Test Item Value Reference Range Comments Absolute Baso (test code = 0.0 K/uL 0.0-0.1 227425) Kane % (test code = 750177) 8 % 3-12 Platelet Count (test code = 131 K/uL 150-400 469286) Lymph % (test code = 382951) 23 % 12-46 Hematocrit (test code = 613090) 47.3 % 39.0-52.0 Absolute Kane (test code = 0.3 K/uL 0.1-1.0 918879) Hemoglobin (test code = 159307) 15.8 g/dL 13.0-17.0 RBC (test code = 671475) 5.11 MIL/uL 4.22-5.81 Absolute Lymph (test code = 0.9 K/uL 0.7-4.0 358273) MCHC (test code = 786289) 33.4 g/dL 30.0-36.0 Eos % (test code = 746918) 1 % 0-5 MPV (test code = 955431) 9.7 fL 8.6-12.4 RDW (test code = 281351) 13.2 % 11.5-15.5 Absolute Eos (test code = 0.0 K/uL 0.0-0.7 826591) WBC (test code = 013586) 3.7 K/uL 4.0-10.5 Baso % (test code = 690721) 0 % 0-1 Granulocyte % (test code = 68 % 43-77 950836) MCH (test code = 289526) 30.9 pg 26.0-34.0 MCV (test code = 822842) 92.6 fL 78.0-100.0 Smear Review (test code = Criteria for review not met 794257) Absolute Gran (test code = 2.5 K/uL 1.7-7.7 827684) Influenza A and B Ag, [id number] 00:01:00 Test Item Value Reference Range Comments Influenza A Antigen (test code = 33038604) Not Detected Not D etected Influenza B Antigen (test code = 43273109) Not Detected Not D etected Influenza A Antigen (test code = 460898132) Not Detected Not Detected Source: (test code = 69886738) NASAL Influenza B Antigen (test code = 970479324) Not Detected Not Detected Source: (test code = 7506020686) NASAL Influenza B Antigen (test code = 8466165799) Not Detected Not Detected Source: (test code = 7623376312) NASAL Influenza B Antigen (test code = 6656870722) Not Detected Not Detected Source: (test code = 7204806977) NASAL Influenza A Antigen (test code = 2720812169) Not Detected Not Detected Influenza A Antigen (test code = 1906767275) Not Detected Not Detected C-Reactive Protein (CRP)2016-08-02 00:01:00 Test Item Value Reference Range Comments CRP (C-Reactive Protein) (test code = 654078) 1.5 mg/dL <0 .60 BMP with Estimated [id number] 00:01:00 Test Item Value Reference Range Comments Est GFR, (test code = 369413) 89 mL/min > =60 BUN (test code = 263169) 12 mg/dL 7-25 Creatinine (test code = 962635) 1.11 mg/dL 0.70-1.33 CO2 (test code = 655453) 26 mmol/L 20-31 Potassium (test code = 852763) 4.1 mmol/L 3.5-5.3 Calcium (test code = 032889) 8.6 mg/dL 8.6-10.3 Est GFR, NonAfrican Gabonese (test code = 492613) 77 mL/min >=60 Sodium (test code = 956551) 137 mmol/L 135-146 Glucose (test code = 755369) 91 mg/dL 65-99 Chloride (test code = 249915) 100 mmol/L 98-110 Hemoglobin A1c with [id number] 00:01:00 Test Item Value Reference Range Comments Hemoglobin A1C (test code = 545001) 5.7 % <5.7 Estimated Average Glucose (test code = 863826) 117 mg/dL < 117 Assessments Condition Name Status Diagnosis Date Treating Clinici an Kidney stone Active 2018-12-19 09:55:07 Chest pain, unspecified Active Anxiety disorder, unspecified Active Irritability and anger Active Abnormal weight loss Active Chest pain, unspecified Active Hyperlipidemia, unspecified Active Other fatigue Active Other specified abnormal findings of Active blood chemistry Contact w and (suspected ) exposure to Active oth hazardous substnc Panic disorder without agoraphobia Active Hyperlipidemia, unspecified Active Other fatigue Active Encounters Start End Encounter Admission Attending Care Care Encounter Date/Time Date/Time Type Type Clinicians Facility Department ID 2018-12-19 2018-12-19 Angel Hemphill [id number] 00:00:00 00:00:00 MD Camron: [facility] [address] [place] [address], Ph. [phone] 2018-12-18 2018-12-18 Emergency ED [facility] [id number] 07:04:00 11:01:00 YOSEPH 61 2018-05-30 2018-05-30 Outpatient [facility] 3A [id number] 14:45:00 14:45:00 Dennis Kellogg [id number] s [id number] and [id number] [facility] 2018-05-28 2018-05-28 Outpatient [facility] EC [id number] 08:00:00 08:00:00 Dennis Children [id number] s [id number] and [id number] [facility] 2017-08-03 2017-08-03 Outpatient [facility] 14 [id number] 14:15:00 14:15:00 Dennis Kellogg [id number] s [id number] and [id number] [facility], [place] Immunizations Ordered Immunization Filled Immunization Date Status Commen ts Refusal Reason Name Name Vaccination Unknown Completed Payers Payer Name Policy Type Policy Number Effective Date Expiration D ate Social History Smoking Status Start Date Stop Date Former Smoker Vital Signs Vital Name Observation Time Observation Value Comments BP Diastolic 2018-12-19 00:00:00 84 mm[Hg] Height 2018-12-19 00:00:00 70 [in_i] BMI (Body Mass Index) 2018-12-19 00:00:00 25.7 kg/m2 BP Systolic 2018-12-19 00:00:00 130 mm[Hg] Body Weight 2018-12-19 00:00:00 179 [lb_av] WEIGHT 2018-12-18 07:04:00 80.1000 kg HEIGHT 2018-12-18 07:04:00 177.300802 cm Hospital Discharge Instructions 1. Kidney stone urinalysis, complete culture, urine Discussion Note He will call me for severe renal colic symptoms in which case I might place a ureteral stent to palliate his obstruction. We will send him to Dr. Dunne in [place] for consideration of PCNL. Ultimately he would benefit gettingthe records from Dr. Dey to determine what findings were identified on his 24 urine collectionthat might help prevent stones in the future. Patient educational handouts: No information available.
== END ==
LOC: OD 07:33
PROVIDERS: ATTEND Physician Assistant
DX: E78.5 Hyperlipidemia, unspecified (principal); R00.2 Palpitations; R07.9 Chest pain, unspecified; Z79.899 Other long term (current) drug therapy
CPT/HCPCS: 36415; 80048; 80061; 80076